=== PATIENT | female | born 2000 | race Two or more races ===

== ENCOUNTER 2021-08-10 08:49 | Outpatient (CLI) | payer OTHER, SELFPAY ==
--- NOTE | ~2021-08-10 | MM_ITS ---
MM post biopsy invasive LT DATE: 08/10/2021 10:49 INDICATION: Post ultrasound-guided biopsy mammogram TECHNIQUE: Digital ML and CC views following ultrasound-guided biopsy of 12:00 mass COMPARISON: August 10, 2021 ultrasound-guided left biopsy images FINDINGS: A biopsy marker is present anteriorly in the lateral subareolar area of the left breast. IMPRESSION: Status post ultrasound-guided biopsy of left 12:00 lesion near subareolar area Reviewed, dictated and finalized at [facility] Reviewed, dictated and finalized at [facility]. 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
--- NOTE | ~2021-08-10 | US_ITS ---
EXAMINATION: US GUIDED NEEDLE BIOPSY DATE: 08/10/2021 10:14 [employer] INDICATION: 12:00 left breast mass TECHNIQUE AND FINDINGS: The risks and potential benefits of the procedure were discussed with the patient, and written inform ed consent was obtained. Timeout procedure was performed. After sterile preparation of the left breas t, 1% lidocaine was utilized for local anesthesia. A 14G spring-loaded biopsy gun needle was advanced to the edge of the region of interest from a later al approach utilizing sonographic guidance. A total of three tissue core samples were obtained throu gh the lesion. An Inrad tissue marker clip was then placed at the biopsy site. Hemostasis was achiev ed. A sterile bandage was applied. The patient tolerated procedure well and there was no evidence of immediate complication. The patien t was given verbal instructions prior to departing from the department. A two view mammogram was perf ormed to document tissue marker clip placement. The tissue samples were submitted to surgical patholo gy for histologic analysis. IMPRESSION: 1. Successful ultrasound guided biopsy of left 12:00 breast mass with biopsy marker placement. Joi solis refer to pathology report for histologic analysis. Reviewed, dictated and finalized at [facility] Reviewed, dictated and finalized at [facility]. 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 Successful ultrasound guided biopsy of left 12:00 breast mass with biopsy m arker placement. Please refer to pathology report for histologic analysis.
== END 2021-08-10 08:50 | disposition home or self-care (01) ==
LOC: ANHIMG 08:55
PROVIDERS: PCP Family Medicine; Visit Provider Family Medicine
DX: N63.20 Unspecified lump in the left breast, unspecified quadrant (principal)
CPT/HCPCS: 19083; 88305; A4648